=== PATIENT | female | born 1985 | race African-American/Black ===

== ENCOUNTER 2019-02-21 08:34 | Outpatient (CLI) | payer OTHER ==
[2019-02-21] MEDS ORDERED: IOTHALAMATE MEGLUMINE 50 ML VIAL IVP ONE (09:28)
[2019-02-21] MEDS ORDERED: BUFFERED LIDOCAINE 10 ML SYRINGE IU ONE (09:28)
[2019-02-21] MEDS ORDERED: GADOPENTETATE DIMEGLUMINE 5 ML VIAL IVP ONE (09:28)
--- NOTE | 2019-02-21 10:32 | XRAY Report ---
Reason: TROCHANTERIC BURSITIS, LEFT HIP Procedure Date: 02/21/2019 Accession Number: [id number] / [id number] Procedure: FL - Arthrogram Needle Placement CPT Code: FULL RESULT: EXAM: FLUOROSCOPIC GUIDANCE EXAM DATE: 02/21/2019 09:25 AM. CLINICAL HISTORY: Left hip pain. Patient will undergo left hip MR arthrogram later today COMPARISON: None. TECHNIQUE AND FINDINGS: Informed consent was obtained. Using sterile technique, left inguinal region was prepped and draped in the usual manner. Local anesthetic was applied, and a 22-gauge spinal needle was placed into the left hip joint. A small amount of contrast was injected to document intra-articular needle tip position. Then, the following solution was instilled into the joint cavity without complication: Gadolinium based contrast 0.2 mL, normal saline 10 mL, iodinated contrast 10 mL. IMPRESSION: Fluoroscopic guidance provided for fluoroscopically guided left hip contrast injection for subsequent left hip MR arthrogram. Total fluoroscopy time: 25 seconds. Number of images: 1. RADIA
--- NOTE | 2019-02-22 08:34 | MRI Report ---
Reason: TROCHANTERIC BURSITIS, LEFT HIP Procedure Date: 02/21/2019 Accession Number: [id number] / [id number] Procedure: MRI - Arthrogram Hip LT CPT Code: FULL RESULT: EXAM: LEFT HIP MRI ARTHROGRAM WITH CONTRAST EXAM DATE: 02/21/2019 10:45 AM. CLINICAL HISTORY: Trochanteric bursitis, left hip. COMPARISON: ARTHROGRAM 02/21/2019 9:33 AM. TECHNIQUE: Multiplanar, multisequence T1-weighted and fluid-sensitive, small svgxc-[id number] sequences of the hip and large tgwyz-qh-casq sequences of the pelvis after an arthrographic injection of dilute gadolinium, dictated under a separate exam. Other: None. FINDINGS: Bones: No fractures or subluxations. No marrow edema or bone lesions. Right/left Hip: No acetabular retroversion. Femoral alpha angle measures 56 degrees, and may represent decreased head and neck offset. No loose bodies. The articular cartilage is intact. The labrum is intact. The ligamentum teres is intact. Other Joints: The visualized lumbar spine, sacroiliac joints, symphysis pubis, and contralateral hip are unremarkable. Musculature: No edema or fatty atrophy. The gluteus medius and minimus tendons are normal. The visualized hamstring tendons are normal. The ischiofemoral space is normal. Pelvic Cavity: The visualized viscera are unremarkable. No lymphadenopathy. No free fluid in the pelvis. Other: The visualized sciatic nerves are unremarkable. No bursitis. The subcutaneous tissues are unremarkable. IMPRESSION: 1. Mild decreased femoral head and neck offset with alpha angle 56 degrees. 2. Alignment normal. No evidence of labral tear. Cartilage well preserved. RADIA
== END 2019-02-21 08:35 | disposition home or self-care (01) ==
LOC: DI 08:34
PROVIDERS: ATTEND General Practice
DX: M70.62 Trochanteric bursitis, left hip (principal)
CPT/HCPCS: 73722; 77002

== ENCOUNTER 2019-04-23 12:43 | Outpatient (CLI) | payer OTHER ==
--- NOTE | 2019-04-23 15:37 | MRI Report ---
Reason: UNSPECIFIED INJURY OF LEFT HIP Procedure Date: 04/23/2019 Accession Number: [id number] / [id number] Procedure: MRI - Lumbar Spine W/O CPT Code: FULL RESULT: EXAM: MRI LUMBAR SPINE WITHOUT CONTRAST EXAM DATE: 04/23/2019 01:30 PM. CLINICAL HISTORY: 34-year-old female. UNSPECIFIED INJURY OF LEFT HIP. COMPARISON: None. TECHNIQUE: Multiplanar, multisequence T1-weighted and fluid-sensitive sequences of the lumbar spine from T12 to S1 without contrast. Other: None. FINDINGS: Spinal Canal: The conus terminates at L2. The conus medullaris and cauda equina are unremarkable. Alignment: No scoliosis or spondylolisthesis. Bone Marrow: Five kbq-rgs-[id number] lumbar vertebral bodies are assumed. No gross fractures or bone lesions. No bone marrow replacement. Disk Levels/Facets: T12-L1: Unremarkable. L1-L2: Unremarkable. L2-L3: Unremarkable. L3-L4: Unremarkable. L4-L5: Unremarkable. L5-S1: Unremarkable. Musculature: Normal. No edema or fatty atrophy. Other: The partially visualized retroperitoneum is unremarkable. IMPRESSION: Unremarkable lumbar spine MRI. Comment: The following findings are so common in adults without low back pain that while we report their presence, they must be interpreted with caution and in the context of the clinical situation. (Reference Mikeyvik et al, Spine 2001) Prevalence of findings in patients without low back pain: Disk degeneration (any evidence): 92% Disk desiccation/T2 signal loss: 83% Disk height loss: 56% Disk bulge: 64% Disk protrusion: 32% Annular tear/high intensity zone: 38% RADIA
== END 2019-04-23 12:44 | disposition home or self-care (01) ==
LOC: DI 12:43
PROVIDERS: ATTEND Orthopaedic Surgery
DX: S79.912A Unspecified injury of left hip, initial encounter (principal)
CPT/HCPCS: 72148